=== PATIENT | male | born 1990 | race Caucasian/White ===

== ENCOUNTER 2022-12-28 21:11 | Observation (INO) | payer OTHER ==
[~2022-12-28] VITALS: Ht 165.1 cm; Wt 104.3 kg
[2022-12-28 21:40] VITALS: BP 125/74; PULSE 102; RESP 17; TEMP 98.1; O2SAT 99
[2022-12-28] MEDS ORDERED: PROPOFOL 200 MG/20 ML VIAL IV ONE ×2 (22:40→23:42)
[2022-12-28] MEDS ORDERED: NACL 0.9% 1,000 ML IV ONE (22:40)
[2022-12-28] MEDS ORDERED: fentaNYL citrate 0.05 MG/ML VIAL ONE (23:40)
[2022-12-29] MEDS ORDERED: MORPHINE SULFATE 10 MG/ML VIAL IVP PRN (00:10)
[2022-12-29] MEDS ORDERED: PROPOFOL 200 MG/20 ML VIAL IV ONE (00:15)
[2022-12-29] MEDS ORDERED: fentaNYL citrate 0.05 MG/ML VIAL IVP ONE (00:15)
[2022-12-29] MEDS ORDERED: ONDANSETRON 4 MG/2 ML VIAL IVP PRN (01:05)
[2022-12-29] MEDS ORDERED: LORazepam 2 MG/ML VIAL IVP PRN (01:05)
[2022-12-29] MEDS ORDERED: ACETAMINOPHEN 325 MG TAB PO PRN (01:05)
[2022-12-29 01:20] LABS: BASOPHILS # (AUTO) 0.1 K/uL (0.00-0.22); BASOPHILS % (AUTO) 0.3 % (0.0-2.0); EOSINOPHILS % (AUTO) 0.1 % (0.0-4.0); HEMATOCRIT 42.4 % (36-52); HEMOGLOBIN 14.1 g/dL (12.0-18.0); LYMPHOCYTES % (AUTO) 7.1 % (20.5-51.1); MEAN CORPUSCULAR HEMOGLOBIN 27 pg (27-31); MEAN CORPUSCULAR HGB CONC 33 g/dL (33-37); MONOCYTES # (AUTO) 0.6 K/uL (0.8-1.0); MONOCYTES % (AUTO) 3.9 % (1.7-9.3); NEUTROPHILS # (AUTO) 13.1 K/uL (1.8-7.7); NEUTROPHILS % (AUTO) 88.6 % (42.2-75.2); PLATELET COUNT (AUTO) 252 K/uL (140-450); RED CELL DISTRIBUTION WIDTH 13.9 % (11.6-13.7)
[2022-12-29 01:22] LABS: RED BLOOD CELL COUNT(AUTO) 4.63 MIL/uL (4.20-6.10); WHITE BLOOD COUNT (AUTO) 14.2 K/uL (4.8-10.8)
[2022-12-29 01:23] LABS: MEAN CORPUSCULAR VOLUME 85.5 fL (80-94)
[2022-12-29 01:38] LABS: ALANINE AMINOTRANSFERASE 60 U/L (12-78); ALCOHOL, BLOOD < 3 mg/dL (<10); ALKALINE PHOSPHATASE 72 U/L (50-136); ANION GAP 17.9 (8-16); ASPARTATE AMINOTRANSFERASE 29 U/L (15-37); CALCIUM 8.5 mg/dL (8.5-10.1); CARBON DIOXIDE 21.1 mmol/L (21-32); CHLORIDE 103 mmol/L (98-107); CREATININE 1.1 mg/dL (0.6-1.3); GFR ARICAN-AMERICAN 99 mL/min (>90); GFR NON ARICAN-AMERICAN 81 mL/min (>90); GLUCOSE 120 mg/dL (74-106); SODIUM SERUM 138 mmol/L (136-145); TOTAL BILIRUBIN 0.5 mg/dL (0.0-1.0); TOTAL PROTEIN, SERUM 7.8 g/dL (6.4-8.2); UREA NITROGEN, BLOOD 13 mg/dL (7-18)
[2022-12-29] MEDS: NACL 0.9% 1,000 ML IV SCH ×3 (01:47→14:25)
[2022-12-29 02:32] VITALS: PULSE 91; RESP 18; O2SAT 95
[2022-12-29] MEDS: MORPHINE SULFATE 2 MG/ML SYR IVP PRN ×2 (04:53→09:13)
[2022-12-29 08:37] VITALS: BP 146/91; PULSE 97; RESP 18; TEMP 97; O2SAT 97
[2022-12-29 08:54] VITALS: PULSE 82; RESP 18; O2SAT 97
[2022-12-29] MEDS ORDERED: ONDANSETRON 4 MG/2 ML VIAL IVP ONE (14:08)
[2022-12-29] MEDS ORDERED: fentaNYL citrate 0.05 MG/ML VIAL ONE (14:08)
[2022-12-29] MEDS ORDERED: DEXAMETHASONE 4 MG/ML VIAL IVP ONE (14:08)
[2022-12-29] MEDS ORDERED: KETOROLAC 30 MG/ML VIAL IVP ONE (14:08)
[2022-12-29] MEDS ORDERED: MIDAZOLAM 5 MG/5 ML VIAL ONE (14:09)
[2022-12-29 15:21] VITALS: BP 138/85; PULSE 94; RESP 18; TEMP 97
[2022-12-29 15:25] VITALS: BP 138/85; PULSE 94; RESP 18; TEMP 97; O2SAT 96
== END 2022-12-29 15:55 | disposition home or self-care (01) ==
LOC: EDBD 21:11 → MED 21:11 → MTU 12-29 01:06
PROVIDERS: ADMIT Internal Medicine; ATTEND Internal Medicine
DX: S43.005A Unspecified dislocation of left shoulder joint, initial encounter (principal); D72.829 Elevated white blood cell count, unspecified; Z79.899 Other long term (current) drug therapy; X58.XXXA Exposure to other specified factors, initial encounter; Y93.83 Activity, rough housing and horseplay; Y92.89 Other specified places as the place of occurrence of the external cause; Y99.8 Other external cause status
CPT/HCPCS: 23650; 23655; 36415; 73020; 73030; 80053; 85025; 87081; 94760; 96374; 96375; 96376; 99285; G0378; G0482; J1100; J1885; J2250; J2270; J2405; J2704; J3010; Q0092; 99284